=== PATIENT | male | born 1995 | race African-American/Black ===

== ENCOUNTER 2017-01-01 12:49 | Emergency (ER) | payer BC ==
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
[~2017-01-01 12:49] MED LIST: AUGMENTIN PO
== END 2017-01-01 18:07 ==
LOC: CED 12:49
DX: S51.011A Laceration without foreign body of right elbow, initial encounter (principal); F17.200 Nicotine dependence, unspecified, uncomplicated; W22.8XXA Striking against or struck by other objects, initial encounter
CPT/HCPCS: 73080; 73090; 73130; 96372; 99283; J1170

== ENCOUNTER 2017-02-19 13:47 | Emergency (ER) | payer BC ==
[~2017-02-19] VITALS: Ht 188 cm; Wt 77.1 kg
--- NOTE | ~2017-02-19 | CR63 ---
[facility] A Service of [facility] RADIOLOGY TEXT RESULTS PATIENT: LOUANN PUTNAM LOCATION: [facility] : [birth year] UNIT #: [id number] AGE: [address]: Suzanne Larsen APRN SEX: M ORDER DR: [id number] [facility] [address] [place], [place] [address] [id number] E MR#: [id number] Acc #: [id number] NAME: LOUANN PUTNAM. : 1995 SEX: M STUDY DATE/TIME: 02/19/2017 14:56 UNIT: [facility] ROOM: STUDY DESCRIPTION: CR Chest 2 View Attending Physician: Suzanne Larsen A.P.R.N. Ordering Physician: [facility] MEDICAL IMAGING REPORT This report is preliminary unless electronic signature is present EXAM PA and lateral chest 02/19/2017 HISTORY 21-year-old male with fever, congestion and body aches since last night. Greater than 5-year smoking history. COMPARISON PA and lateral chest 03/14/2015. FINDINGS PA and lateral examination of the chest upright shows a good expansion of the parenchyma with a normal distribution of the pulmonary vascularity. There is no indication of congestion, effusion, infiltrate, tumor, or nodular density. The pleural reflections and diaphragmatic contours are normal. The cardiac silhouette and mediastinal anatomy is within normal limits. IMPRESSION Normal chest. Dictated by... Coni Cuellar M.D. THIS IS AN ELECTRONICALLY VERIFIED REPORT Coni Cuellar M.D. at 02/20/2017 8:31 AM MARCO A/nacho TD: 02/19/2017 23:14 JOB #: [id number] [facility] A Service [facility] RADIOLOGY TEXT RESULTS PATIENT: LOUANN PUTNAM LOCATION: [facility] : [birth year] UNIT #: [id number] AGE: [address]: Suzanne Larsen APRN SEX: M ORDER DR: MEDICAL IMAGING REPORT Page 1 of 1 COPY
== END 2017-02-19 15:40 | disposition home or self-care (01) ==
LOC: CFTX 13:47 → CED 13:47 → CFTX 14:45
DX: J11.1 Influenza due to unidentified influenza virus with other respiratory manifestations (principal)
CPT/HCPCS: 71020; 87651; 99284